=== PATIENT | female | born 1975 | race Caucasian/White ===

== ENCOUNTER 2016-10-21 10:28 | Emergency (ER) | payer MEDICARE, MEDICAID ==
[~2016-10-21] VITALS: Ht 170.2 cm; Wt 129.0 kg
[~2016-10-21 10:28] MED LIST: BUTA1CAP57 PO; GABA-826 PO; LAMO100T6 PO; LAMO200T PO
[2016-10-21] MEDS ORDERED: DIAZEPAM 5 MG TABLET ONE (11:40)
[2016-10-21] MEDS ORDERED: OXYcodone/APAP 5/325MG TABLET ONE (11:41)
[2016-10-21] MEDS ORDERED: KETOROLAC 30 MG/1 ML ONE (11:41)
[2016-10-21] MEDS ORDERED: OXYcodone/APAP 5/325MG TABLET PO ONE (12:00)
[2016-10-21] MEDS ORDERED: DIAZEPAM 5 MG TABLET PO ONE (12:00)
[2016-10-21] MEDS ORDERED: KETOROLAC 30 MG/1 ML IM ONE (12:00)
[2016-10-21 12:13] VITALS: BP 115/69
== END 2016-10-21 13:19 | disposition home or self-care (01) ==
LOC: ED 11:00
DX: S16.1XXA Strain of muscle, fascia and tendon at neck level, initial encounter (principal); G40.909 Epilepsy, unspecified, not intractable, without status epilepticus; X58.XXXA Exposure to other specified factors, initial encounter; Y93.89 Activity, other specified; Y99.8 Other external cause status; Y92.89 Other specified places as the place of occurrence of the external cause
CPT/HCPCS: 72050; 96372; 99284; J1885

== ENCOUNTER 2016-10-30 14:25 | Emergency (ER) | payer MEDICARE, MEDICAID ==
[~2016-10-30] VITALS: Ht 170.2 cm; Wt 130.5 kg
[2016-10-30] MEDS ORDERED: ACETAMINOPHEN 500 MG TABLET ONE (14:49)
[2016-10-30] MEDS ORDERED: ACETAMINOPHEN 500 MG TABLET PO ONE (15:00)
[2016-10-30] MEDS ORDERED: PLEASE ENTER HEIGHT AND WEIGHT MC SCH (15:00)
[2016-10-30 15:14] LABS: ASPARTATE AMINO TRANSFERASE 8 U/L (15-37); BLOOD UREA NITROGEN 10 mg/dL (7-18)
[2016-10-30 16:27] VITALS: BP 149/64
== END 2016-10-30 16:29 | disposition home or self-care (01) ==
LOC: ED 16:10
DX: G40.309 Generalized idiopathic epilepsy and epileptic syndromes, not intractable, without status epilepticus (principal); R51 Headache
CPT/HCPCS: 36415; 80053; 81001; 85025; 87086; 93005; 99285

== ENCOUNTER → 2017-06-09 | Outpatient (CLI) | payer MEDICARE, MEDICAID ==
[~2017-06-09] MED LIST changes: -LAMO200T PO; +LAMO200T2 PO
== END | disposition home or self-care (01) ==
LOC: CVU 10:01
PROVIDERS: ATTEND Internal Medicine Cardiovascular Disease
DX: R06.02 Shortness of breath (principal)
CPT/HCPCS: 78452; 93017; 93306; A9502